=== PATIENT | female | born 1975 ===

== ENCOUNTER → 2019-08-28 | Outpatient (CLI) | payer MEDICAID, OTHER | LOC: RAD 13:58 | PROVIDERS: ATTEND Surgery | DX: N63.32 Unspecified lump in axillary tail of the left breast (principal) ==

== ENCOUNTER → 2019-09-06 | Outpatient (CLI) | payer MEDICAID, OTHER ==
[~2019-09-06] VITALS: Ht 152.4 cm; Wt 65.9 kg
[~2019-09-06] MED LIST: LIDOCAINE 1% INJ 20 ML 20 ML VIAL INJ ONE
--- NOTE | 2019-09-06 16:15 | Diagnostic Imaging Report ---
INDICATION: Left axillary mass. Patient presents for ultrasound-guided biopsy. FINDINGS: Patient was brought to the procedure room, placed on table in the supine position. Ultrasound imaging of the left axilla was performed to evaluate appropriate entry site. Left axilla was then prepped and draped in the usual sterile fashion. Small amount of 1% lidocaine was utilized for local anesthesia. A total of four passes were made into the left axillary mass utilizing a 14-gauge Achieve needle. Hemostasis was obtained using manual compression. Patient tolerated the procedure well and left the department in stable condition. IMPRESSION: Successful ultrasound-guided core biopsy of the left axillary mass. Pathology results are currently pending. Dictated by: Dictated on workstation # [id number]
== END ==
LOC: RAD 11:53
PROVIDERS: ATTEND Surgery
DX: R22.9 Localized swelling, mass and lump, unspecified (principal)

== ENCOUNTER 2019-11-01 14:57 | Outpatient (CLI) | payer OTHER ==
[~2019-11-01] VITALS: Ht 152.4 cm; Wt 69.7 kg
[2019-11-01 15:08] VITALS: BP 117/71
[2019-11-08] MEDS ORDERED: DOCU-143 PO (08:31)
[2019-11-08] MEDS ORDERED: ACHD5005 PO (08:31)
== END 2019-11-01 15:30 | disposition home or self-care (01) ==
LOC: PREOP 14:57
PROVIDERS: ATTEND Surgery
DX: Z01.818 Encounter for other preprocedural examination (principal)
CPT/HCPCS: 87081